=== PATIENT | male | born 1985 | race Hispanic/Latino ===

== ENCOUNTER 2019-01-19 18:56 | Emergency (ER) | payer MEDICAID ==
[2019-01-19 19:02] VITALS: BP 128/77
--- NOTE | 2019-01-19 19:03 | Event Note ---
ED Screening Note Date of service: 01/19/19 Time: 19:01 ED Screening Note: This is a 33 y.o. M. that presents to the ER with multiple erythematous bumps to RLE. Current cigarette and marijuana smoker. Patient states there are several spiders in the new house they moved into. This initial assessment/diagnostic orders/clinical plan/treatment(s) is/are subject to change based on patients health status, clinical progression and re- assessment by fellow clinical providers in the ED. Further treatment and workup at subsequent clinical providers discretion. Patient/guardian urged not to elope from the ED as their condition may be serious if not clinically assessed and managed. Initial orders include: ACC for further evaluation.
[2019-01-19] MEDS ORDERED: BACTRIM DS PO ONE (21:34)
[2019-01-19] MEDS ORDERED: CLEOCIN 900 MG/50 mL 900 MG/50 ML BAG IV ONE (21:34)
[2019-01-19] MEDS ORDERED: TORADOL IV ONE (21:34)
[2019-01-19 22:07] LABS: Basophils # (Auto) 0.1 K/mm3 (0.0-0.1); Basophils % (Auto) 0.5 % (0.0-1.8); Eosinophils # (Auto) 0.2 K/mm3 (0.0-0.4); Eosinophils % (Auto) 1.1 % (0.0-4.3); Hematocrit 43.9 % (35.5-45.6); Hemoglobin 14.9 gm/dl (11.8-15.2); Lymphocytes # (Auto) 2.6 K/mm3 (1.2-5.4); Lymphocytes % (Auto) 19.4 % (13.4-35.0); Mean Corpuscular HGB Conc 34 % (32-34); Mean Corpuscular Volume 87 fl (84-94); Monocytes # (Auto) 0.9 K/mm3 (0.0-0.8); Monocytes % (Auto) 6.9 % (0.0-7.3); Platelet Count 203 K/mm3 (140-440); Red Blood Count 5.04 M/mm3 (3.65-5.03); Red Cell Distribution Width 12.9 % (13.2-15.2)
[2019-01-19 22:21] LABS: Alanine Aminotransferase 10 units/L (7-56); Albumin 3.8 g/dL (3.9-5); BUN/Creatinine Ratio 11; Blood Urea Nitrogen 8 mg/dL (9-20); Hemolysis Index 9
[2019-01-19] MEDS ORDERED: ZOFRAN ODT PO ONE (22:47)
[2019-01-19] MEDS ORDERED: PERCOCET 5/325 PO ONE (22:47)
--- NOTE | 2019-01-20 00:46 | Emergency Department Report ---
ED General Adult HPI - General Chief complaint: Skin/Abscess/Foreign Body Stated complaint: RIGHT LEG ABSCESS'S Time Seen by Provider: 01/19/19 19:00 Source: patient Mode of arrival: Ambulatory Limitations: No Limitations - History of Present Illness Initial comments: Patient is a 3-year-old white male with no past medical history presents to the ED with complaint of acute onset persistent severe painful swollen multiple erythematous nonfluctuant maculopapular rashes on her right thigh and right leg for the last 1 week, worse in the last 2 days. Patient denies fever, chills, nausea, vomiting, dizziness, headache, chest pain, numbness and tingling all right leg or low back pain. Patient states that he has been taking [id number] medication with no relief. MD Complaint: cellulitis, rash on right leg -: Sudden, week(s) (1) Location: lower extremity (right leg) Radiation: non-radiation Severity scale (0 -10): 4 Quality: burning, aching, sharp, constant Consistency: constant Improves with: none Worsens with: movement Associated Symptoms: denies other symptoms, rash (erythematous maculopapular rash on right leg). denies: confusion, chest pain, cough, diaphoresis, fever/chills, headaches, loss of appetite, malaise, nausea/vomiting, seizure, shortness of breath, syncope Treatments Prior to Arrival: NSAID - Related Data Previous Rx's Medication Instructions Recorded Last Taken Type Clindamycin [Clindamycin CAP] 300 mg PO Q6HR #80 capsule 01/20/19 Unknown Rx Ibuprofen [Motrin] 800 mg PO Q8HR PRN #24 tablet 01/20/19 Unknown Rx Ondansetron [Zofran Odt] 4 mg PO Q8HR #15 tab.rapdis 01/20/19 Unknown Rx Sulfamethoxazole/Trimethoprim 1 each PO Q12H #20 tablet 01/20/19 Unknown Rx [Bactrim DS TAB] traMADol [Ultram] 50 mg PO Q6HR PRN #15 tablet 01/20/19 Unknown Rx Allergies Allergy/AdvReac Type Severity Reaction Status Date / Time No Known Allergies Allergy Unverified 01/19/19 19:00 ED Review of Systems ROS: Stated complaint: RIGHT LEG ABSCESS'S Other details as noted in HPI Constitutional: denies: chills, fever Eyes: denies: eye pain, eye discharge, vision change ENT: denies: ear pain, throat pain Respiratory: denies: cough, shortness of breath, wheezing Cardiovascular: denies: chest pain, palpitations Endocrine: no symptoms reported Gastrointestinal: denies: abdominal pain, nausea, diarrhea Genitourinary: denies: urgency, dysuria Musculoskeletal: joint swelling (knee), arthralgia (right thigh and knee pain due to erythematous maculopaular rash), myalgia. denies: back pain Skin: rash (erythematous maculopapular rash on right knee, thigh and lower leg with pain), change in color. denies: lesions Neurological: denies: headache, weakness, paresthesias Psychiatric: denies: anxiety, depression Hematological/Lymphatic: denies: easy bleeding, easy bruising ED Past Medical Hx - Past Medical History Previous Medical History?: No - Surgical History Past Surgical History?: No - Social History Smoking Status: Current Every Day Smoker Substance Use Type: Marijuana - Medications Home Medications: Home Medications Medication Instructions Recorded Confirmed Last Taken Type Clindamycin [Clindamycin CAP] 300 mg PO Q6HR #80 capsule 01/20/19 Unknown Rx Ibuprofen [Motrin] 800 mg PO Q8HR PRN #24 tablet 01/20/19 Unknown Rx Ondansetron [Zofran Odt] 4 mg PO Q8HR #15 tab.rapdis 01/20/19 Unknown Rx Sulfamethoxazole/Trimethoprim 1 each PO Q12H #20 tablet 01/20/19 Unknown Rx [Bactrim DS TAB] traMADol [Ultram] 50 mg PO Q6HR PRN #15 tablet 01/20/19 Unknown Rx ED Physical Exam - General Limitations: No Limitations General appearance: alert, in no apparent distress - Head Head exam: Present: atraumatic, normocephalic, normal inspection - Eye Eye exam: Present: normal appearance, PERRL, EOMI. Absent: scleral icterus, conjunctival injection, nystagmus Pupils: Present: normal accommodation - ENT ENT exam: Present: normal exam, normal orophraynx, mucous membranes moist, TM's normal bilaterally, normal external ear exam - Neck Neck exam: Present: normal inspection, full ROM - Respiratory Respiratory exam: Present: normal lung sounds bilaterally. Absent: respiratory distress, wheezes, rales, rhonchi, stridor, chest wall tenderness - Cardiovascular Cardiovascular Exam: Present: regular rate, normal rhythm, normal heart sounds. Absent: systolic murmur, diastolic murmur, rubs, gallop - GI/Abdominal GI/Abdominal exam: Present: soft, normal bowel sounds. Absent: distended, tenderness, hyperactive bowel sounds, organomegaly, mass - Rectal Rectal exam: Present: deferred - Extremities Exam Extremities exam: Present: normal inspection, full ROM, tenderness (Palpable ri ght thigh, knee and lower leg tenderness due to multiple erythematous maculopapular rashes), normal capillary refill, joint swelling. Absent: pedal edema - Back Exam Back exam: Present: normal inspection - Neurological Exam Neurological exam: Present: alert, oriented X3, CN II-XII intact, normal gait, reflexes normal - Psychiatric Psychiatric exam: Present: normal affect, normal mood - Skin Skin exam: Present: warm, dry, intact, normal color, rash (Multiple erythematous maculopapular nonfluctuant rashes on right thigh, knee and lower leg), erythema, urticaria ED Course Vital Signs 01/19/19 01/19/19 19:01 22:36 Temperature 98.2 F Pulse Rate 80 Respiratory 18 16 Rate Blood Pressure 128/77 O2 Sat by Pulse 99 Oximetry - Reevaluation(s) Reevaluation #1: 01/20/19 00:51 This is a 33-year-old white male who presented to the ED with multiple erythematous maculopapular rashes on right thigh, right knee and right lower leg. In the ED, patient is alert and oriented 3 and is not in distress with normal vital signs. Lab test results were reviewed and are significant for acute leukocytosis of 13,500. The rest of the laboratories results are nonactionable. Patient was treated in the ED with for pain and also started on IV gentamicin, and also given Bactrim DS by mouth 1. On reevaluation, patient's pain is well controlled with medications and patient was discharged home on medications including antibiotics and pain medications and advised to follow-up with his primary care physician in 7-10 days for reevaluation or return to the ED immediately if symptoms get worse. 01/20/19 00:52 ED Medical Decision Making - Lab Data Result diagrams: 01/19/19 21:50 01/19/19 21:50 - Medical Decision Making This is a 33-year-old white male who presented to the ED with multiple erythematous maculopapular rashes on right thigh, right knee and right lower leg. In the ED, patient is alert and oriented 3 and is not in distress with normal vital signs. Lab test results were reviewed and are significant for acute leukocytosis of 13,500. The rest of the laboratories results are nonactionable. Patient was treated in the ED with for pain and also started on IV gentamicin, and also given Bactrim DS by mouth 1. On reevaluation, patient's pain is well controlled with medications and patient was discharged home on medications including antibiotics and pain medications and advised to follow-up with his primary care physician in 7-10 days for reevaluation or return . immediately to the ED if symptoms get worse - Differential Diagnosis cellulitis, folliculitis, abscess of right leg Critical care attestation.: If time is entered above; I have spent that time in minutes in the direct care of this critically ill patient, excluding procedure time. ED Disposition Clinical Impression: Cellulitis of right lower leg, Acute folliculitis Disposition: - TO HOME OR SELFCARE Is pt being admited?: No Does the pt Need Aspirin: No Condition: Stable Instructions: Cellulitis (ED), Folliculitis (ED) Additional Instructions: Take medications with food, drink plenty of fluids and follow-up with your primary care physician in 7-10 days for reevaluation. Return to the ED immediately if symptoms get worse. Prescriptions: Sulfamethoxazole/Trimethoprim [Bactrim DS TAB] 1 each PO Q12H #20 tablet Clindamycin [Clindamycin CAP] 300 mg PO Q6HR #80 capsule Ibuprofen [Motrin] 800 mg PO Q8HR PRN #24 tablet PRN Reason: Pain , Severe (7-10) traMADol [Ultram] 50 mg PO Q6HR PRN #15 tablet PRN Reason: Pain Ondansetron [Zofran Odt] 4 mg PO Q8HR #15 tab.rapdis Referrals: MARC VILLALBA MD [Primary Care Provider] - 3-5 Days Time of Disposition: 00:42 Print Language: DANISH
== END 2019-01-20 01:04 | disposition home or self-care (01) ==
LOC: ED 18:56
DX: L03.115 Cellulitis of right lower limb (principal); L73.9 Follicular disorder, unspecified; F17.200 Nicotine dependence, unspecified, uncomplicated; F12.10 Cannabis abuse, uncomplicated
CPT/HCPCS: 36415; 80053; 85025; 96365; 96375; 99283; J1885; Q0162